=== PATIENT | female | born 2000 | race Caucasian/White ===

== ENCOUNTER → 2024-02-19 | Outpatient (CLI) | payer BC ==
--- NOTE | 2024-02-19 16:16 | CT ---
EXAMINATION TYPE: CT abdomen w con DATE OF EXAM: 02/19/2024 3:38 PM COMPARISON: None CLINICAL INDICATION: Female, 23 years old with history of R10.13 Epigastric pain; Epigastric pain wit h n/v x few months TECHNIQUE: Axial CT abdomen w con;Sagittal and coronal reformats were created on a separate workstat ion. Contrast used:100 mL of Isovue 370 with IV Contrast, (none if empty) Oral contrast used: with Oral Contrast (none if empty) CT DLP: 322.6 mGycm, Automated exposure control for dose reduction was used. FINDINGS: LOWER CHEST: Unremarkable ABDOMEN LIVER: Unremarkable GALLBLADDER AND BILE DUCTS: Unremarkable. PANCREAS: Unremarkable. SPLEEN: Unremarkable. ADRENAL GLANDS: Unremarkable. KIDNEYS AND URETERS: No evidence of hydronephrosis or renal calculus. The ureters are unremarkable. STOMACH AND BOWEL: No evidence of bowel obstruction. Moderate to large amount stool throughout the co aubrey. PERITONEUM/RETROPERITONEUM: No evidence of pneumoperitoneum or free fluid. VASCULATURE: No evidence of aortic aneurysm. MUSCULOSKELETAL: No acute osseous abnormalities LYMPH NODES: No gross evidence for lymphadenopathy. SOFT TISSUE/ABDOMINAL WALL: Unremarkable IMPRESSION: 1. No evidence for acute abdominal process. 2. Moderate to large amount stool throughout the colon. [facility], , 02/19/2024 4:13 PM
== END | disposition home or self-care (01) ==
LOC: RADCTMAIN 14:31
PROVIDERS: ATTEND Family Medicine
DX: R10.13 Epigastric pain (principal); R19.5 Other fecal abnormalities
CPT/HCPCS: 74160; Q9967